=== PATIENT | male | born 1975 | race American Indian/Alaskan Native ===

== ENCOUNTER 2017-01-03 08:21 | Emergency (ER) | payer SELFPAY ==
[2017-01-03 08:31] VITALS: BP 160/115
== END 2017-01-03 09:05 | disposition left against medical advice (07) ==
LOC: ED 08:21
DX: K08.89 Other specified disorders of teeth and supporting structures (principal); Z53.21 Procedure and treatment not carried out due to patient leaving prior to being seen by health care provider